=== PATIENT | female | born 1965 | race Caucasian/White ===

== ENCOUNTER → 2019-08-14 14:20 | Outpatient (CLI) | payer OTHER, SELFPAY ==
--- NOTE | 2019-08-14 | DI.RAD.S_ITS ---
PROCEDURE: XR CHEST 2V INDICATIONS: Hypothyroidism, Shortness of Breath TECHNIQUE: 2 views of the chest were acquired. COMPARISON: None. FINDINGS: Surgical changes and devices: None. Lungs and pleura: Lungs are clear. No pleural effusions or pneumothorax. Mediastinum: Mediastinal contours are normal. Heart size is normal. Bones and chest wall: No suspicious bony abnormalities. Soft tissues appear unremarkable. IMPRESSION: No source for shortness of breath identified radiographically. Dictated by: Quang Alvarado [facility] Interpreted: Adrienne Mcelroy MD on 08/14/2019 at 15:58 Approved by: Adrienne Mcelroy M.D. on 08/14/2019 at 17:34
[2019-08-14 16:51] LABS: Free T3, Triiodothyronine Free 3.24 pg/mL (2.77-5.27)
[2019-08-14 17:05] LABS: Thyroid Stimulating Hormone 3.16 uIU/mL (0.47-4.68)
--- NOTE | 2019-08-19 10:59 | PM.PFT.1 ---
Pulmonary Function Test Referral & Results Date Patient Seen: 08/14/19 Requesting provider: Ryan Plata Results: The spirometry demonstrates an FVC of 2.89 L which is 70% of predicted. The FEV1 was measured at 2.35 L which is 81% of predicted. The FEV1/FVC ratio was 81 which is 102% of predicted. Following the administration of bronchodilator there was no appreciable change. No lung volumes were performed No diffusing capacity was performed Interpretation: This study which is limited to spirometry with forced volumes shows perhaps very mild obstructive lung disease without evidence of benefit following bronchodilator
== END ==
PROVIDERS: PCP Orthopaedic Surgery; Visit Provider Orthopaedic Surgery
DX: E03.9 Hypothyroidism, unspecified (principal); R06.02 Shortness of breath
CPT/HCPCS: 36415; 71046; 84439; 84443; 84481; 94060